=== PATIENT | female | born 1990 | race African-American/Black ===

== ENCOUNTER 2017-11-25 12:49 | Observation (INO) | payer MEDICAID | END 2017-11-25 14:00 | disposition home or self-care (01) | LOC: L&D 12:49 | PROVIDERS: ADMIT Obstetrics & Gynecology; ATTEND Obstetrics & Gynecology | DX: O26.892 Other specified pregnancy related conditions, second trimester (principal); R10.9 Unspecified abdominal pain; O36.8120 Decreased fetal movements, second trimester, not applicable or unspecified; Z3A.22 22 weeks gestation of pregnancy | CPT/HCPCS: 99281; G0378 ==

== ENCOUNTER 2018-12-07 08:03 | Emergency (ER) | payer MEDICAID, MEDICARE ==
[~2018-12-07] VITALS: Ht 167.6 cm; Wt 65.0 kg
[2018-12-07 09:15] VITALS: BP 110/68
== END 2018-12-07 09:20 | disposition home or self-care (01) ==
LOC: ER 08:03
DX: J20.9 Acute bronchitis, unspecified (principal)
CPT/HCPCS: 71045; 81025; 99283